=== PATIENT | male | born 1935 | race Caucasian/White ===

== ENCOUNTER → 2018-05-24 | Outpatient (CLI) | payer OTHER ==
[~2018-05-24] MED LIST: ASPI81CH; FURO20 PO; GLIM2; Isosorbide Dini30 MG PO; LOSA50 PO; LOSHYD100; METF500 PO; NAC600 MG; NITR.4SL SL; Nitrostat0.4 MG; OMEP20ER PO; PRAV20; PRED10; Pravachol20 MG PO; TOPROL XL200 MG
== END | disposition home or self-care (01) ==
LOC: LAB SHORT 10:10 → PLD 10:10
DX: C44.622 Squamous cell carcinoma of skin of right upper limb, including shoulder (principal)
CPT/HCPCS: 88305

== ENCOUNTER 2018-12-12 11:37 | Day surgery (SDC) | payer OTHER ==
[~2018-12-12] VITALS: Ht 170.2 cm; Wt 76.9 kg
--- NOTE | 2018-12-12 13:23 | NUR ---
12/12/18 1323 Aleah Marquez SIMETHCONAlexandra WATER WAS INJECTED THROUGH THE BIOPSY PORT PER MD THOMSON
== END 2018-12-12 14:04 | disposition home or self-care (01) ==
LOC: ORSCSDS 11:37
PROVIDERS: Internal Medicine Gastroenterology
PROC: 0DB68ZX Excision of Stomach, Via Natural or Artificial Opening Endoscopic, Diagnostic (ICD-10-PCS; principal; 2018-12-12 13:15)
PROC: 0DBK8ZX Excision of Ascending Colon, Via Natural or Artificial Opening Endoscopic, Diagnostic (ICD-10-PCS; principal; 2018-12-12 13:15)
PROC: 0DBP8ZX Excision of Rectum, Via Natural or Artificial Opening Endoscopic, Diagnostic (ICD-10-PCS; principal; 2018-12-12 13:15)
PROC: 0DB98ZX Excision of Duodenum, Via Natural or Artificial Opening Endoscopic, Diagnostic (ICD-10-PCS; principal; 2018-12-12 13:15)
PROC: 0DB58ZX Excision of Esophagus, Via Natural or Artificial Opening Endoscopic, Diagnostic (ICD-10-PCS; principal; 2018-12-12 13:15)
DX: D50.9 Iron deficiency anemia, unspecified (principal); K31.89 Other diseases of stomach and duodenum; K21.0 Gastro-esophageal reflux disease with esophagitis; K22.2 Esophageal obstruction; K44.9 Diaphragmatic hernia without obstruction or gangrene; K29.80 Duodenitis without bleeding; D12.2 Benign neoplasm of ascending colon; D12.8 Benign neoplasm of rectum; K64.8 Other hemorrhoids; K57.30 Diverticulosis of large intestine without perforation or abscess without bleeding; I25.10 Atherosclerotic heart disease of native coronary artery without angina pectoris; E11.22 Type 2 diabetes mellitus with diabetic chronic kidney disease; I12.9 Hypertensive chronic kidney disease with stage 1 through stage 4 chronic kidney disease, or unspecified chronic kidney disease; N18.3 Chronic kidney disease, stage 3 (moderate); E78.00 Pure hypercholesterolemia, unspecified; Z79.82 Long term (current) use of aspirin; Z79.84 Long term (current) use of oral hypoglycemic drugs; Z79.899 Other long term (current) drug therapy
CPT/HCPCS: 82947; 88305; 88312; 88342; J7120

== ENCOUNTER → 2019-05-25 | Outpatient (CLI) | payer OTHER | END | disposition home or self-care (01) | LOC: PLD 10:41 → LAB SHORT 10:41 | DX: D48.5 Neoplasm of uncertain behavior of skin (principal) | CPT/HCPCS: 88305 ==

== ENCOUNTER 2020-08-25 08:32 | Inpatient (IN) | payer OTHER ==
[~2020-08-25] VITALS: Ht 175.3 cm; Wt 79.8 kg
[2020-08-25] MEDS ORDERED: Aspirin EC81 MG PO (08:53)
[2020-08-25] MEDS ORDERED: SUCR1 PO (08:53)
[2020-08-25] MEDS ORDERED: AMLO10 PO (08:53)
[2020-08-25] MEDS ORDERED: Amaryl2 MG PO (08:54)
[2020-08-25] MEDS ORDERED: TAMS.4ER PO (08:54)
[2020-08-25] MEDS ORDERED: NITR.4SL SL ×2 (08:54→13:28)
[2020-08-25] MEDS ORDERED: LOSA50 PO (08:54)
[2020-08-25] MEDS ORDERED: METO50ER PO (08:55)
[2020-08-25 09:05] LABS: BASOPHILS ABSOLUTE AUTO 0.02 K/mm3 (0.00-0.23); BASOPHILS PERCENT AUTO 0 % (0-2); EOSINOPHILS ABSOLUTE AUTO 0.22 K/mm3 (0.00-0.68); EOSINOPHILS PERCENT AUTO 4 % (0-6); Hematocrit 37.2 % (37.0-53.0); IMMATURE GRAN ABSOLUTE AUTO 0.02 K/mm3 (0.00-0.10); IMMATURE GRAN PERCENT AUTO 0 % (0-1); LYMPHOCYTES ABSOLUTE AUTO 0.96 K/mm3 (0.84-5.20); LYMPHOCYTES PERCENT AUTO 16 % (21-46); MONOCYTES ABSOLUTE AUTO 0.64 K/mm3 (0.16-1.47); MONOCYTES PERCENT AUTO 10 % (4-13); Mean Corpuscular HGB Conc 32.3 g/dL (31.5-36.5); Mean Corpuscular Volume 87 fL (80-100); Mean Platelet Volume 10.2 fL (9.1-12.4); NEUTROPHILS PERCENT AUTO 70 % (41-73); Platelet Count 176 K/mm3 (150-400); RDW Coefficient Variation 13.1 % (11.7-14.2); RDW Standard Deviation 41.1 fL (35.1-46.3); Red Blood Cell Count 4.28 M/mm3 (4.30-5.90); White Blood Cell Count 6.16 K/mm3 (4.00-11.30)
[2020-08-25 09:26] LABS: Albumin, Blood 3.6 g/dL (3.4-5.0); Albumin/Globulin Ratio 1.1 (0.8-1.8); Bilirubin, Total 0.4 mg/dL (0.1-1.0); Bun/Creatinine Ratio 20.1 (12.0-20.0); Calcium, Blood 8.5 mg/dL (8.5-10.1); Creatinine, Blood 1.74 mg/dL (0.60-1.20); Globulin, Blood 3.3 g/dL (2.2-4.0); Potassium, Blood 4.5 mmol/L (3.5-5.5); Total Protein, Blood 6.9 g/dL (6.4-8.2); Troponin I 0.043 ng/mL (0.000-0.040)
--- NOTE | 2020-08-25 12:33 | NUR ---
GOT REPORT FROM [facility] IN ER
[2020-08-25 13:39] LABS: International Normalized Ratio 0.99; Prothrombin Time Results 10.6 Sec (9.7-11.5)
--- NOTE | 2020-08-25 14:57 | NUR ---
DR AGUILA AT BEDSIDE AROUND 1430, HE IS AWARE OF BP AND IS ORDERING PT'S BP MEDS. OK FOR CARDIAC DIET AND NPO MN FOR POSSIBLE ANGIO
--- NOTE | 2020-08-25 19:17 | NUR ---
SHIFT SUMMARY DEL ARRIVED FROM ER THIS AFTERNOON, DENIES CHEST PAIN BUT STATES L ARM IS SLIGHTLY ALISHA. FAMILY VISITED. TELE ON SHOWING NSR W 1 DEGREE BLOCK. HEPARIN DRIP STARTED. TROPONIN CARYL TO .118, NEXT CHECK AT 9PM. DR DUNNE CONSULTED AT BS, CARDIAC DIET TONIGHT AND NPO MN FOR ANGIO TOMORROW MORNING
[2020-08-26 04:00] LABS: BASOPHILS ABSOLUTE AUTO 0.03 K/mm3 (0.00-0.23); BASOPHILS PERCENT AUTO 1 % (0-2); EOSINOPHILS ABSOLUTE AUTO 0.29 K/mm3 (0.00-0.68); EOSINOPHILS PERCENT AUTO 4 % (0-6); Hematocrit 34.4 % (37.0-53.0); IMMATURE GRAN ABSOLUTE AUTO 0.01 K/mm3 (0.00-0.10); IMMATURE GRAN PERCENT AUTO 0 % (0-1); LYMPHOCYTES ABSOLUTE AUTO 1.54 K/mm3 (0.84-5.20); LYMPHOCYTES PERCENT AUTO 23 % (21-46); MONOCYTES ABSOLUTE AUTO 0.75 K/mm3 (0.16-1.47); MONOCYTES PERCENT AUTO 11 % (4-13); Mean Corpuscular HGB 27.2 pg (26.0-34.0); Mean Corpuscular Volume 85 fL (80-100); Mean Platelet Volume 10.3 fL (9.1-12.4); NEUTROPHILS ABSOLUTE AUTO 3.97 K/mm3 (1.96-9.15); NEUTROPHILS PERCENT AUTO 60 % (41-73); Platelet Count 188 K/mm3 (150-400); RDW Coefficient Variation 13.2 % (11.7-14.2); RDW Standard Deviation 40.9 fL (35.1-46.3); Red Blood Cell Count 4.04 M/mm3 (4.30-5.90); White Blood Cell Count 6.59 K/mm3 (4.00-11.30)
[2020-08-26 04:25] LABS: Anion Gap 3 mmol/L (6-16); Blood Urea Nitrogen 32 mg/dL (8-24); CHOL/HDL RATIO 4.1; CO2, Blood 25 mmol/L (21-32); Calcium, Blood 8.1 mg/dL (8.5-10.1); Chloride, Blood 115 mmol/L (98-108); Cholesterol 142 mg/dL (50-200); Creatinine, Blood 1.68 mg/dL (0.60-1.20); Glomerular Filtration Rate 41 (60-); Glucose, Blood 119 mg/dL (70-99); HDL Cholesterol 35 mg/dL (>39); LDL/HDL RATIO 2.5; Low Density Lipoprotein Chol 87 mg/dL (0-110); Potassium, Blood 4.7 mmol/L (3.5-5.5); Sodium, Blood 143 mmol/L (136-145); Triglycerides 102 mg/dL (30-160); Troponin I 0.388 ng/mL (0.000-0.040); Very Low Density Lipoprot Chol 20 mg/dL (6-32)
--- NOTE | 2020-08-26 05:54 | NUR ---
SHIFT SUMMARY PT STATED NO CHEST PAIN T/O SHIFT, UP TO BATHROOM WITHOUT ANY CP. TROPONIN LEVELS CLIMBING T/O SHIFT TO 0.388. BP 160/59 AT START OF SHIFT, DOWN TO 126/61 BY AM. HR 60-70'S, ON ROOM AIR WITH O2 SATS IN THE HIGH 90'S. HEPARIN WAS INFUSING ALL NIGHT WITH NO CHANGE IN RATE. PT WAS QUIET, COOPERATIVE, AND COMFORTABLE. HAS BEEN NPO SINCE MIDNIGHT. PT HAD UNEVENTFUL NIGHT. WILL CONTINUE TO MONITOR UNTIL SHIFT CHANGE.
[2020-08-26 10:17] LABS: Influenza A, PCR Negative (NEGATIVE); Influenza B, PCR Negative (NEGATIVE); Resp Syncytial Virus, PCR Negative (NEGATIVE); SARS-Cov-2 (COVID-19) PCR, MMC Negative (NEGATIVE)
[2020-08-26 15:45] LABS: Creatine Kinase MB 4.4 ng/mL (0.0-3.6); Creatine Kinase MB Index 3.8 (0.0-4.0); Troponin I 0.353 ng/mL (0.000-0.040)
--- NOTE | 2020-08-26 17:25 | NUR ---
PATIENT HAD ANGIO THIS MORNING, ARRIVED BACK TO UNIT WITH TR BAND IN PLACE ON R. WRIST, NO HEMATOMA/DISCHARGE NOTED. RADIAL SITE RECOVERED WELL, TR BAND REMOVED AND WOUND DRESSED WITH TEGADERM. PATIENT COMPLAINED OF CHEST PAIN UPON RETURN TO UNIT, STATED IT WAS 4/10 IN TERMS OF PAIN. IMDUR GIVEN PER DR. JOHNSON. PATIENT ENDORSED INCREASE IN CHEST PAIN TO 7/10 WITH NEW ONSET RADIATION OF PAIN DOWN BOTH ARMS. DR. JOHNSON NOTIFIED AND SAID TO GO AHEAD AND GIVE NITRO SUBLINGUAL. NITRO GIVEN PER EMAR PATIENT ENDORSED RELIEF OF CHEST PAIN DOWN TO A 5/10, HOWEVER PATIENT LATER ENDORSED FEELING THAT THE PAIN WAS INCREASING AGAIN. DR. JOHNSON NOTIFIED, ORDERS FOR NITRO PASTE GIVEN. SINCE ADMIN PATIENT HAS ENDORSED RELIEF OF CHEST PAIN AND ARM PAIN TO NO LONGER FEELING IN PAIN BUT ONLY UNCOMFORTABLE. PATIENT ENDORSED FEELING TIRED AFTER EPISODE OF CHEST PAIN. PATIENT WAS HYPERTENSIVE AT TIMES POST-ACTIVITY. PATIENT ABLE TO AMBULATE INDEPENDENTLY IN ROOM, ON ROOM AIR.
--- NOTE | 2020-08-26 19:10 | NUR ---
OPENING NOTE RECEIVED BEDSIDE REPORT FROM LENKA LEY AND ASSUMED CARE. PT IS RESTING IN BED, DENIES COMPLAINTS AT THIS TIME, PLEASANT AND LAUGHING DURING INTRODUCTION. ASSESSED TR SITE ON RIGHT RADIAL AND NOTED DIME SIZED DRAINAGE TO TEGADERM. SITE IS SOFT, NON-TENDER. ARM BOARD IN PLACE. TELE IS SHOWING SR WITH FHB IN THE 60'S. PT STATES "MY CHEST WAS HURTING EARLIER BUT FEELS A LOT BETTER NOW". NITRO PASTE IN PLACE TO R UPPER CHEST WALL. NO ACUTE CONCERNS AT THIS TIME, WILL CONTINUE PLAN OF CARE AND CONTINUE TO MONITOR.
[2020-08-26 23:06] LABS: Creatine Kinase MB 6.1 ng/mL (0.0-3.6); Creatine Kinase MB Index 3.8 (0.0-4.0)
[2020-08-26 23:20] LABS: Troponin I 0.695 ng/mL (0.000-0.040)
--- NOTE | 2020-08-27 05:09 | NUR ---
WELDING INSPECTOR SUMMARY NO ACUTE CHANGES THIS SHIFT. PT AAOX4 AND INDEPENDENT IN ROOM. DENIES ANY CP, SOB, N/V TONIGHT. NITRO PASTE APPLIED Q6H PER EMAR. TROPONIN AT START OF SHIFT CRITICAL HIGH AT 0.695, DISCUSSED WITH MANAGER PMOJIL WATTERS. VSS, WILL CONTINUE TO MONITOR.
[2020-08-27 06:26] LABS: Creatine Kinase MB 19.9 ng/mL (0.0-3.6); Creatine Kinase MB Index 7.4 (0.0-4.0)
[2020-08-27 06:28] LABS: Troponin I 2.19 ng/mL (0.000-0.040)
[2020-08-27] MEDS ORDERED: ATORVASTATIN CA40 M1 PO (12:27)
[2020-08-27] MEDS ORDERED: CLOP75 PO (12:27)
[2020-08-27] MEDS ORDERED: RANO500T PO (12:28)
[2020-08-27] MEDS ORDERED: ISOSORBIDE MONO60 MG PO (12:28)
--- NOTE | 2020-08-27 13:40 | NUR ---
Patient is sitting on a chair and alert. Patient tells me about the procedure he had done and medications that were adjusted and how he is feeling much better. Patient then tells me about his [employer] joleen, his family and about the of his spouse (4yrs ago) and son-in-law (2yrs ago). Patient speaks about personal issues. I normalize patient's experience and provide grief support, companionship and prayer. Patient responds well and shows signs of an elevated mood.
--- NOTE | 2020-08-27 13:48 | NUR ---
PATIENT PROVIDED DISCHARGE INFO REGARDING REASONS TO RETURN TO THE HOSPITAL, FOLLOW UP PLANS, MEDICATION INFO, AND RADIAL ANGIO ACCESS SITE CARE. PATIENT VERBALIZED UNDERSTANDING. PATIENT DENIES CHEST PAIN, NO SIGNS OF ACUTE DISTRESS.
== END 2020-08-27 13:54 | disposition home or self-care (01) | DRG 247 ==
LOC: ER 08:32 → PCU 08:33
PROVIDERS: Internal Medicine Interventional Cardiology; Pharmacist; Physician Assistant; ADMIT Internal Medicine
PROC: 027034Z Dilation of Coronary Artery, One Artery with Drug-eluting Intraluminal Device, Percutaneous Approach (ICD-10-PCS; principal; 2020-08-26)
PROC: 02703ZZ Dilation of Coronary Artery, One Artery, Percutaneous Approach (ICD-10-PCS; 2020-08-26)
PROC: B2110ZZ Fluoroscopy of Multiple Coronary Arteries using High Osmolar Contrast (ICD-10-PCS; 2020-08-26)
DX: I21.4 Non-ST elevation (NSTEMI) myocardial infarction (principal); I25.110 Atherosclerotic heart disease of native coronary artery with unstable angina pectoris; Z79.82 Long term (current) use of aspirin; Q05.9 Spina bifida, unspecified; Z20.828 Contact with and (suspected) exposure to other viral communicable diseases; E11.22 Type 2 diabetes mellitus with diabetic chronic kidney disease; N18.30 Chronic kidney disease, stage 3 unspecified; I12.9 Hypertensive chronic kidney disease with stage 1 through stage 4 chronic kidney disease, or unspecified chronic kidney disease; E78.5 Hyperlipidemia, unspecified
CPT/HCPCS: 0241U; 36415; 71046; 76937; 80048; 80053; 80061; 82550; 82553; 83036; 83880; 84484; 85025; 85347; 85610; 85730; 92920; 93005; 93010; 93306; 93454; 93458; 96372; 99152; 99153; 99285-25; A9270-GY; C1725; C1769; C1874; C1887; C1894; C9600; G0378; J1644; J2250; J3010; J7030; J7050; Q9967

== ENCOUNTER → 2021-01-01 | Outpatient (CLI) | payer OTHER ==
[~2021-01-01] MED LIST changes: +AMLO10 PO; +ATORVASTATIN CA40 M1 PO; +Amaryl2 MG PO; +Aspirin EC81 MG PO; +CLOP75 PO; +ISOSORBIDE MONO60 MG PO; +METO50ER PO; +RANO500T PO; +SUCR1 PO; +TAMS.4ER PO
== END ==
LOC: LAB SHORT 15:06 → PLD 15:06
DX: D48.5 Neoplasm of uncertain behavior of skin (principal)
CPT/HCPCS: 88305

== ENCOUNTER 2021-05-10 15:11 | Emergency (ER) | payer OTHER ==
[~2021-05-10] VITALS: Ht 170.2 cm; Wt 81.7 kg
[2021-05-10 20:27] LABS: BASOPHILS ABSOLUTE AUTO 0.01 K/mm3 (0.00-0.23); BASOPHILS PERCENT AUTO 0 % (0-2); EOSINOPHILS ABSOLUTE AUTO 0.01 K/mm3 (0.00-0.68); EOSINOPHILS PERCENT AUTO 0 % (0-6); Hematocrit 36.8 % (37.0-53.0); Hemoglobin 12.1 g/dL (13.5-17.5); IMMATURE GRAN ABSOLUTE AUTO 0.01 K/mm3 (0.00-0.10); IMMATURE GRAN PERCENT AUTO 0 % (0-1); LYMPHOCYTES ABSOLUTE AUTO 0.41 K/mm3 (0.84-5.20); LYMPHOCYTES PERCENT AUTO 14 % (21-46); MONOCYTES ABSOLUTE AUTO 0.53 K/mm3 (0.16-1.47); MONOCYTES PERCENT AUTO 18 % (4-13); Mean Corpuscular HGB 28.4 pg (26.0-34.0); Mean Corpuscular HGB Conc 32.9 g/dL (31.5-36.5); Mean Corpuscular Volume 86 fL (80-100); NEUTROPHILS ABSOLUTE AUTO 1.94 K/mm3 (1.96-9.15); NEUTROPHILS PERCENT AUTO 67 % (41-73); Platelet Count 119 K/mm3 (150-400); RDW Coefficient Variation 13.2 % (11.7-14.2); RDW Standard Deviation 41.3 fL (35.1-46.3); Red Blood Cell Count 4.26 M/mm3 (4.30-5.90); White Blood Cell Count 2.91 K/mm3 (4.00-11.30)
[2021-05-10 20:49] LABS: Alanine Aminotransfer (ALT/SGP 23 U/L (12-78); Albumin, Blood 3.6 g/dL (3.4-5.0); Albumin/Globulin Ratio 1.1 (0.8-1.8); Alk Phos 59 U/L (50-136); Anion Gap 7 mmol/L (6-16); Aspartate Aminotrans (AST/SGOT 26 U/L (12-37); Bilirubin, Total 0.5 mg/dL (0.1-1.0); Blood Urea Nitrogen 42 mg/dL (8-24); Bun/Creatinine Ratio 20.1 (12.0-20.0); CO2, Blood 23 mmol/L (21-32); Chloride, Blood 108 mmol/L (98-108); Creatinine, Blood 2.09 mg/dL (0.60-1.20); Globulin, Blood 3.4 g/dL (2.2-4.0); Glomerular Filtration Rate 30 (60-); Glucose, Blood 66 mg/dL (70-99); Potassium, Blood 4.4 mmol/L (3.5-5.5); Sodium, Blood 138 mmol/L (136-145)
== END 2021-05-10 21:40 | disposition home or self-care (01) ==
LOC: ER 15:11
PROVIDERS: Emergency Medicine
DX: U07.1 COVID-19 (principal); E11.9 Type 2 diabetes mellitus without complications; I10 Essential (primary) hypertension
CPT/HCPCS: 36415; 71045; 80053; 84484; 85025; 93005; 93010; 99285-25

== ENCOUNTER 2021-08-22 12:11 | Observation (INO) | payer OTHER ==
[~2021-08-22] VITALS: Ht 170.2 cm; Wt 81.3 kg
[~2021-08-22 12:11] MED LIST changes: +LOSA25 PO
[2021-08-22] MEDS ORDERED: FERSU300 PO (12:41)
[2021-08-22] MEDS ORDERED: FINA5 PO (12:42)
[2021-08-22] MEDS ORDERED: MIRALAX17 GM PO (12:43)
[2021-08-22] MEDS ORDERED: OMEP20ER PO (12:44)
[2021-08-22] MEDS ORDERED: PANT40 PO (12:44)
[2021-08-22 13:14] LABS: BASOPHILS ABSOLUTE AUTO 0.03 K/mm3 (0.00-0.23); BASOPHILS PERCENT AUTO 0 % (0-2); EOSINOPHILS ABSOLUTE AUTO 0.14 K/mm3 (0.00-0.68); EOSINOPHILS PERCENT AUTO 2 % (0-6); Hematocrit 39.2 % (37.0-53.0); Hemoglobin 12.6 g/dL (13.5-17.5); IMMATURE GRAN ABSOLUTE AUTO 0.02 K/mm3 (0.00-0.10); IMMATURE GRAN PERCENT AUTO 0 % (0-1); LYMPHOCYTES PERCENT AUTO 12 % (21-46); MONOCYTES ABSOLUTE AUTO 0.78 K/mm3 (0.16-1.47); MONOCYTES PERCENT AUTO 12 % (4-13); Mean Corpuscular HGB Conc 32.1 g/dL (31.5-36.5); Mean Corpuscular Volume 87 fL (80-100); Mean Platelet Volume 10.7 fL (9.1-12.4); NEUTROPHILS PERCENT AUTO 74 % (41-73); Platelet Count 172 K/mm3 (150-400); RDW Coefficient Variation 13.1 % (11.7-14.2); RDW Standard Deviation 41.4 fL (35.1-46.3); White Blood Cell Count 6.77 K/mm3 (4.00-11.30)
[2021-08-22 13:51] LABS: Alanine Aminotransfer (ALT/SGP 24 U/L (12-78); Albumin, Blood 3.1 g/dL (3.4-5.0); Albumin/Globulin Ratio 0.9 (0.8-1.8); Alk Phos 75 U/L (50-136); Anion Gap 9 mmol/L (6-16); Aspartate Aminotrans (AST/SGOT 17 U/L (12-37); Bilirubin, Total 0.4 mg/dL (0.1-1.0); Blood Urea Nitrogen 34 mg/dL (8-24); CO2, Blood 22 mmol/L (21-32); Calcium, Blood 8.5 mg/dL (8.5-10.1); Chloride, Blood 109 mmol/L (98-108); Creatinine, Blood 1.62 mg/dL (0.60-1.20); Globulin, Blood 3.4 g/dL (2.2-4.0); Glomerular Filtration Rate 40 (60-); Glucose, Blood 257 mg/dL (70-99); Potassium, Blood 4.8 mmol/L (3.5-5.5); Sodium, Blood 140 mmol/L (136-145); Total Protein, Blood 6.5 g/dL (6.4-8.2); Troponin I <0.015 ng/mL (0.000-0.040)
[2021-08-22 16:12] LABS: Influenza A, PCR NEGATIVE (NEGATIVE); Influenza B, PCR NEGATIVE (NEGATIVE); Resp Syncytial Virus, PCR NEGATIVE (NEGATIVE); SARS-Cov-2 (COVID-19) PCR, MMC NEGATIVE (NEGATIVE)
--- NOTE | 2021-08-22 20:39 | NUR ---
ASSUMED CARE OF PATIENT AT APPROXIMATELY 1905 FROM CYNDI Nguyen RN. PATIENT ALERT AND ORIENTED X4; SBA W/ FWW TO BATHROOM; USES CANE AT HOME; PATIENT S/P ANGIO RIGHT RADIAL W/ NO STENTS; TR BAND AND ARMBOARD IN PLACE; TR BAND DEFLATED BY 1929 AND REMOVED AND REPLACED WITH TEGADERM AT 2029; ARMBOARD IN PLACE. PATIENT DENIES PAIN, NUMBNESS, TINGLING, DIZZINESS OR NAUSEA. NSR ON TELE; OXYGEN SATURATION ABOVE 90% ON ROOM AIR. PIV X2 S/L.
--- NOTE | 2021-08-22 20:40 | NUR ---
ASSUMED CARE OF PATIENT AT APPROXIMATELY 1905 FROM CYNDI Nguyen RN. PATIENT ALERT AND ORIENTED X4; SBA W/ FWW TO BATHROOM; USES CANE AT HOME; PATIENT S/P ANGIO RIGHT RADIAL W/ NO STENTS; TR BAND AND ARMBOARD IN PLACE; TR BAND DEFLATED BY 1929 AND REMOVED AND REPLACED WITH TEGADERM AT 2029; ARMBOARD IN PLACE. PATIENT DENIES PAIN, NUMBNESS, TINGLING, DIZZINESS OR NAUSEA. PACED ON TELE; OXYGEN SATURATION ABOVE 90% ON ROOM AIR. PIV X2 S/L.
[2021-08-23] MEDS ORDERED: ANALPRAM HC 2.559 ML PR (01:57)
[2021-08-23] MEDS ORDERED: PANT40 PO (01:59)
[2021-08-23 04:29] LABS: Bun/Creatinine Ratio 20.7 (12.0-20.0); Calcium, Blood 8.6 mg/dL (8.5-10.1); Creatinine, Blood 1.88 mg/dL (0.60-1.20); Potassium, Blood 4.4 mmol/L (3.5-5.5)
--- NOTE | 2021-08-23 05:43 | NUR ---
NO ACUTE CHANGES. PATIENT SLEPT ABOUT SEVEN HOURS LAST NIGHT.
--- NOTE | 2021-08-23 13:51 | NUR ---
DISCHARGE PORFIRIOE PT WAS DISCHARGED AT 1315. DISCHARGE INFORMATION WAS GONE OVER WITHPT AND PT DAUGHTER. INFORMATION PACKET SENT HOME PT WHEN DISCHARGED. PT WAS TRANSFERED TO DAUGHTER'S VEHICLE VIA WHEELCHAIR WITH BELONGINGS IN A BAG. PT LEFT WITH ARM BOARD IN PLACE TO REMIND HIM NOT TO BEND RIGHT WRIST.
== END 2021-08-23 13:15 | disposition home or self-care (01) ==
LOC: ER 12:11 → PCU 16:45 → ER 16:45 → PCU 16:45
PROVIDERS: Internal Medicine Endocrinology, Diabetes & Metabolism; Student in an Organized Health Care Education/Training Program; ADMIT Family Medicine
DX: I25.110 Atherosclerotic heart disease of native coronary artery with unstable angina pectoris (principal); K21.9 Gastro-esophageal reflux disease without esophagitis; I12.9 Hypertensive chronic kidney disease with stage 1 through stage 4 chronic kidney disease, or unspecified chronic kidney disease; E11.22 Type 2 diabetes mellitus with diabetic chronic kidney disease; N18.30 Chronic kidney disease, stage 3 unspecified; Z79.84 Long term (current) use of oral hypoglycemic drugs; I25.2 Old myocardial infarction; Z95.5 Presence of coronary angioplasty implant and graft; E78.5 Hyperlipidemia, unspecified; J18.8 Other pneumonia, unspecified organism; Z20.822 Contact with and (suspected) exposure to COVID-19
CPT/HCPCS: 0241U; 36415; 71045; 76937; 80048; 80053; 83690; 83880; 84484; 85025; 93005; 93010; 93454; 99152; 99285-25; A9270; C1769; C1887; C1894; G0378; J1644; J2250; J3010; J7030; J7050; Q9967

== ENCOUNTER → 2022-11-19 | Outpatient (CLI) | payer OTHER ==
[~2022-11-19] MED LIST changes: +ANALPRAM HC 2.559 ML PR; +FERSU300 PO; +FINA5 PO; +MIRALAX17 GM PO; +PANT40 PO
[2022-11-19 15:27] LABS: BASOPHILS ABSOLUTE AUTO 0.03 K/mm3 (0.00-0.23); BASOPHILS PERCENT AUTO 0 % (0-2); EOSINOPHILS ABSOLUTE AUTO 0.09 K/mm3 (0.00-0.68); EOSINOPHILS PERCENT AUTO 1 % (0-6); Hematocrit 41.8 % (37.0-53.0); Hemoglobin 14.2 g/dL (13.5-17.5); IMMATURE GRAN ABSOLUTE AUTO 0.06 K/mm3 (0.00-0.10); IMMATURE GRAN PERCENT AUTO 1 % (0-1); LYMPHOCYTES ABSOLUTE AUTO 0.91 K/mm3 (0.84-5.20); LYMPHOCYTES PERCENT AUTO 9 % (21-46); MONOCYTES PERCENT AUTO 9 % (4-13); Mean Corpuscular HGB 28.3 pg (26.0-34.0); Mean Corpuscular Volume 83 fL (80-100); Mean Platelet Volume 10.6 fL (9.1-12.4); NEUTROPHILS ABSOLUTE AUTO 8.54 K/mm3 (1.96-9.15); NEUTROPHILS PERCENT AUTO 81 % (41-73); Platelet Count 194 K/mm3 (150-400); RDW Coefficient Variation 13.8 % (11.7-14.2); RDW Standard Deviation 41.8 fL (35.1-46.3); Red Blood Cell Count 5.02 M/mm3 (4.30-5.90); White Blood Cell Count 10.53 K/mm3 (4.00-11.30)
[2022-11-19 15:40] LABS: Albumin, Blood 3.6 g/dL (3.4-5.0); Albumin/Globulin Ratio 1.1 (0.8-1.8); Bilirubin, Total 0.4 mg/dL (0.1-1.0); Bun/Creatinine Ratio 18.2 (12.0-20.0); Creatinine, Blood 2.53 mg/dL (0.60-1.20); Globulin, Blood 3.3 g/dL (2.2-4.0); Potassium, Blood 5.2 mmol/L (3.5-5.5); Total Protein, Blood 6.9 g/dL (6.4-8.2)
== END | disposition home or self-care (01) ==
LOC: LAB SHORT 15:24
PROVIDERS: Chiropractor
DX: R94.31 Abnormal electrocardiogram [ECG] [EKG] (principal); R73.9 Hyperglycemia, unspecified
CPT/HCPCS: 80053; 84484; 85025

== ENCOUNTER → 2022-11-20 | Outpatient (CLI) | payer OTHER ==
[2022-11-20 13:09] LABS: Bun/Creatinine Ratio 23.4 (12.0-20.0); Calcium, Blood 8.6 mg/dL (8.5-10.1); Creatinine, Blood 1.97 mg/dL (0.60-1.20); Magnesium, Blood 2.3 mg/dL (1.6-2.4); Potassium, Blood 4.7 mmol/L (3.5-5.5)
== END | disposition home or self-care (01) ==
LOC: LAB SHORT 13:01 → LAB 13:01
PROVIDERS: Chiropractor
DX: N17.9 Acute kidney failure, unspecified (principal)
CPT/HCPCS: 80048; 83735

== ENCOUNTER → 2022-11-26 | Outpatient (CLI) | payer OTHER ==
[2022-11-26 12:29] LABS: Bun/Creatinine Ratio 15.1 (12.0-20.0); Calcium, Blood 8.8 mg/dL (8.5-10.1); Creatinine, Blood 1.86 mg/dL (0.60-1.20); Magnesium, Blood 1.9 mg/dL (1.6-2.4); Potassium, Blood 4.7 mmol/L (3.5-5.5)
== END | disposition home or self-care (01) ==
LOC: LAB SHORT 12:18
PROVIDERS: Chiropractor
DX: N17.9 Acute kidney failure, unspecified (principal)
CPT/HCPCS: 80048; 83735

== ENCOUNTER 2023-07-13 07:47 | Day surgery (SDC) | payer OTHER ==
[~2023-07-13] VITALS: Ht 162.6 cm; Wt 76.3 kg
[2023-07-13] VITALS (10 sets, daily range): BP systolic 110–160; BP diastolic 45–63
[~2023-07-13 07:47] MED LIST changes: +OLME20 PO; +TRULICITY0.75 MG/01 SC
--- NOTE | 2023-07-13 11:10 | NUR ---
07/13/23 1110 Petrona Anton SPINAL NERVE BLOCK COMPLETED UPON ENTRY TO OR BY DR. GALINDO. PT FEELING PAIN AFTER SPINAL NERVE BLOCK AND DR. GALINDO PLACED AN LMA.
--- NOTE | 2023-07-13 13:07 | NUR ---
PT ARRIVED TO RM 214 FROM PACU ORIENTED TO USE OF CALL LIGHT. VSS. CBG 126, NO COVERAGE REQUIRED. PROVIDED WATER, JELLO AND CRACKERS. PT SLEEPY. AQUACEL TO R HIP CDI. POLAR PACK IN PLACE. DAUGHTER BEDSIDE.
--- NOTE | 2023-07-13 17:29 | NUR ---
SUMMARY PT POD 0 R NEDRA. PT HAS SLEPT OFF AND ON SINCE ARRIVING TO ROOM 214. DENIES PAIN. ABLE TO WIGGLE TOES AND LEGS BUT UNABLE TO LIFT R FOOT OFF BED. DENIES ANY NEEDS AT THIS TIME. CALL LIGHT IN REACH.
[2023-07-14 00:18] VITALS: BP 125/54
[2023-07-14 02:49] VITALS: BP 118/48
--- NOTE | 2023-07-14 04:03 | NUR ---
SHIFT SUMMARY POD1 R NEDRA PT A&0 X4, SLEPT T/O NIGHT. PT DENIED ANY PAIN. AQUACEL TO R HIP C/D/I. PT TOLERATING PO INTAKE. VOIDING. POLAR PACK IN PLACE. NO OTHER CONCERNS AT THIS TIME. CALL LIGHT WTIHIN REACH.
[2023-07-14 04:19] LABS: BASOPHILS ABSOLUTE AUTO 0.01 K/mm3 (0.00-0.23); BASOPHILS PERCENT AUTO 0 % (0-2); EOSINOPHILS PERCENT AUTO 0 % (0-6); Hematocrit 28.4 % (37.0-53.0); Hemoglobin 9.6 g/dL (13.5-17.5); IMMATURE GRAN ABSOLUTE AUTO 0.07 K/mm3 (0.00-0.10); IMMATURE GRAN PERCENT AUTO 1 % (0-1); LYMPHOCYTES ABSOLUTE AUTO 0.44 K/mm3 (0.84-5.20); LYMPHOCYTES PERCENT AUTO 4 % (21-46); MONOCYTES ABSOLUTE AUTO 1.09 K/mm3 (0.16-1.47); MONOCYTES PERCENT AUTO 10 % (4-13); Mean Corpuscular HGB Conc 33.8 g/dL (31.5-36.5); Mean Corpuscular Volume 86 fL (80-100); Mean Platelet Volume 10.5 fL (9.1-12.4); NEUTROPHILS ABSOLUTE AUTO 9.49 K/mm3 (1.96-9.15); NEUTROPHILS PERCENT AUTO 86 % (41-73); Platelet Count 153 K/mm3 (150-400); RDW Coefficient Variation 12.7 % (11.7-14.2); RDW Standard Deviation 39.8 fL (35.1-46.3); Red Blood Cell Count 3.31 M/mm3 (4.30-5.90)
[2023-07-14 04:46] LABS: Bun/Creatinine Ratio 24.1 (12.0-20.0); Creatinine, Blood 2.03 mg/dL (0.60-1.20); Potassium, Blood 4.7 mmol/L (3.5-5.5)
[2023-07-14 07:23] VITALS: BP 122/53
[2023-07-14] MEDS ORDERED: Percocet 5-3251 EACH PO (09:53)
[2023-07-14] MEDS ORDERED: ASPIR 8181 M1 PO (09:54)
--- NOTE | 2023-07-14 11:39 | NUR ---
DISCHARGE NOTE ALERT, ORIENTED, PLEASANT, COOEPRATIVE, MOAPA. POD [address] APPIAH. AMBULATING SBA WITH FWW AND GB. CLEARED FOR DISCHARGE BY PHYSICAL THERAPY. TOLERATING ADA DIET AND LIQUIDS. VOIDING WELL. RATES PAIN 0/10. TAKES SCHEDULED TYLNEOL, DECLINES OTHER PAIN MEDS. AQUACEL DRESSING TO RIGHT HIP C/D/I. IV DC'D WNL. DISCHARGE EDUCATION GIVEN ON NEW MEDS, INCISION CARE, ACTIVITY, AND FOLLOW UP APPTS WITH PT AND ORTHO. PATIENT LEFT UNIT AT 1030 VIA WHEELCHAIR WITH FAMILY MEMBER FOR HOME.
== END 2023-07-14 11:00 | disposition home or self-care (01) ==
LOC: ORSCMMR 07:47 → ORD 09:15 → ORSCMMR 09:15 → SURS 14:12 → ORSCMMR 07-14 11:00
PROVIDERS: Orthopaedic Surgery
PROC: 0SR90JZ Replacement of Right Hip Joint with Synthetic Substitute, Open Approach (ICD-10-PCS; principal; 2023-07-13 09:15)
DX: M16.11 Unilateral primary osteoarthritis, right hip (principal); E11.9 Type 2 diabetes mellitus without complications; I10 Essential (primary) hypertension; I25.10 Atherosclerotic heart disease of native coronary artery without angina pectoris; E78.5 Hyperlipidemia, unspecified; Q05.9 Spina bifida, unspecified; Z79.84 Long term (current) use of oral hypoglycemic drugs; Z79.899 Other long term (current) drug therapy; Z79.82 Long term (current) use of aspirin
CPT/HCPCS: 36415; 72170; 80048; 82947; 85025; 97110; 97116; 97161; 97530; A9270; C1776; J0171; J0690; J0735; J1100; J1815; J1885; J2250; J2405; J2704; J2795; J3010; J7120